=== PATIENT | female | born 1990 | race Caucasian/White ===

== ENCOUNTER 2018-07-13 11:13 | Emergency (ER) | payer OTHER ==
[~2018-07-13] VITALS: Ht 177.8 cm; Wt 82.4 kg
[2018-07-13] MEDS ORDERED: ACETAMINOPHEN 500 MG TABLET PO ONE (12:00)
[2018-07-13] MEDS ORDERED: PLEASE ENTER ALLERGIES MC SCH (12:00)
--- NOTE | 2018-07-13 12:54 | NUR ---
HOME CARE COMPANION: TO ROOM FROM LOBBY
--- NOTE | 2018-07-13 13:15 | NUR ---
ASSUMED CARE OF PT AT THIS TIME. PT CURRENTLY RESTING ON Bacterioscan. NAD NOTED. SKIN PWD. RESP EVEN AND EQAUL. PT AO X 4. CALL LIGHT WITHIN REACH. TERESITA SHARP AT BEDSIDE FOR EVAL. WILL CONT TO LELOIOR PT.
[2018-07-13 13:48] VITALS: BP 115/79
== END 2018-07-13 13:50 | disposition home or self-care (01) ==
LOC: ED 13:46
DX: S39.012A Strain of muscle, fascia and tendon of lower back, initial encounter (principal); S09.90XA Unspecified injury of head, initial encounter; V43.53XA Car driver injured in collision with pick-up truck in traffic accident, initial encounter; Y93.89 Activity, other specified; Y92.89 Other specified places as the place of occurrence of the external cause; Y99.8 Other external cause status
CPT/HCPCS: 36415; 72110; 84703; 99284